=== PATIENT | male | born 1980 | race Native Hawaiian/Other Pacific Islander ===

== ENCOUNTER 2016-11-19 15:47 | Outpatient (CLI) | payer OTHER ==
[~2016-11-19 15:47] MED LIST: LOSA50TA PO; PROAIR HFA INH
== END 2016-11-19 19:10 | disposition home or self-care (01) ==
LOC: LAB 15:47
DX: R19.7 Diarrhea, unspecified (principal)
CPT/HCPCS: 87015; 87045; 87328; 87329; 87899

== ENCOUNTER 2017-02-25 12:50 | Outpatient (CLI) | payer OTHER | END 2017-02-25 19:10 | disposition home or self-care (01) | LOC: RAD 12:50 | DX: R05 Cough (principal) ==

== ENCOUNTER 2018-03-29 07:20 | Inpatient (IN) | payer BC ==
[2018-03-29] VITALS (11 sets, daily range): BP systolic 116–180; BP diastolic 79–112; TEMP 97.7–98.4; Ht 185.4 cm; Wt 124.3 kg
[~2018-03-29] VITALS: Ht 185.4 cm; Wt 124.3 kg
[2018-03-29 07:58] LABS: PLATELET COUNT 276 K/uL (142-355)
[2018-03-29 08:32] LABS: POTASSIUM 3.3 mmol/L (3.6-5.2)
[2018-03-29] MEDS ORDERED: METF100038 PO (16:01)
[2018-03-29] MEDS ORDERED: GLIP10TA55 PO (16:02)
[2018-03-29] MEDS ORDERED: CYCL10TA35 PO (16:06)
[2018-03-29 19:44] LABS: SODIUM 130.8 mmol/L (136-145)
[2018-03-30 04:00] VITALS: BP 117/63; TEMP 98.4
[2018-03-30 06:58] LABS: PLATELET COUNT 248 K/uL (142-355)
[2018-03-30 08:00] VITALS: BP 140/87; TEMP 98.1
[2018-03-30 09:19] LABS: POTASSIUM 4.2 mmol/L (3.6-5.2); SODIUM 134.4 mmol/L (136-145)
[2018-03-30 12:00] VITALS: BP 91/58; TEMP 98.6
[2018-03-30 16:19] VITALS: BP 129/81; TEMP 98.8
[2018-03-30 20:00] VITALS: BP 101/62; TEMP 98.7
[2018-03-31] VITALS: BP 95/62; TEMP 98.9
[2018-03-31 04:00] VITALS: BP 99/78; TEMP 98.4
[2018-03-31 06:47] LABS: PLATELET COUNT 187 K/uL (142-355)
[2018-03-31 08:03] VITALS: BP 144/83; TEMP 98.6
[2018-03-31 08:52] LABS: POTASSIUM 4.2 mmol/L (3.6-5.2); SODIUM 141.6 mmol/L (136-145)
[2018-03-31 12:05] VITALS: BP 111/68; TEMP 98.6
[2018-03-31 16:26] VITALS: BP 115/76; TEMP 99.1
[2018-03-31 20:09] VITALS: BP 140/79; TEMP 98.6
[2018-04-01] VITALS: BP 143/86; TEMP 98.5
[2018-04-01 04:00] VITALS: BP 142/98; TEMP 98.8
[2018-04-01 05:55] LABS: PLATELET COUNT 190 K/uL (142-355)
[2018-04-01 08:17] VITALS: BP 132/86; TEMP 97.9
[2018-04-01 10:51] LABS: SODIUM 159.6 mmol/L (136-145)
[2018-04-01 10:52] LABS: POTASSIUM 5.3 mmol/L (3.6-5.2)
[2018-04-01 12:03] VITALS: BP 133/50; TEMP 98.3
== END 2018-04-01 16:55 | disposition home or self-care (01) | DRG 439 ==
LOC: ED 07:20 → MED/SURG 13:41
PROVIDERS: Internal Medicine; ADMIT Family Medicine
DX: K85.80 Other acute pancreatitis without necrosis or infection (principal); K81.0 Acute cholecystitis; E87.1 Hypo-osmolality and hyponatremia; I10 Essential (primary) hypertension; E11.65 Type 2 diabetes mellitus with hyperglycemia; E78.1 Pure hyperglyceridemia; E66.8 Other obesity
CPT/HCPCS: 36415; 36600; 80048; 80053; 80061; 82150; 82550; 82553; 82805; 83605; 83690; 83735; 84100; 84484; 85027; 85379; 93005; 96374; 96375; 99284; J1650; J1815; J1885; J2175; J2270; J2405; J2543; J2550; Q9963

== ENCOUNTER 2018-04-03 09:17 | Observation (INO) | payer BC ==
[~2018-04-03] VITALS: Ht 185.4 cm; Wt 121.4 kg
[~2018-04-03 09:17] MED LIST changes: +CYCL10TA35 PO; +GLIP10TA55 PO; +METF100038 PO
[2018-04-03 10:28] LABS: PLATELET COUNT 232 K/uL (142-355)
[2018-04-03 10:43] VITALS: BP 12/84; TEMP 97.9; Ht 185.4 cm; Wt 121.4 kg
[2018-04-03 12:00] VITALS: BP 125/84; TEMP 97.9
[2018-04-03 12:20] LABS: POTASSIUM 4.4 mmol/L (3.6-5.2); SODIUM 130 mmol/L (136-145)
== END 2018-04-03 17:00 | disposition short-term general hospital (02) ==
LOC: MED/SURG 09:17
PROVIDERS: ADMIT Family Medicine
DX: R10.11 Right upper quadrant pain (principal); E86.0 Dehydration; I10 Essential (primary) hypertension; E11.9 Type 2 diabetes mellitus without complications
CPT/HCPCS: 80053; 82150; 82550; 83690; 84484; 85027; 93005; 99220; G0378; G0379; J2175; J2543; J2550

== ENCOUNTER 2018-04-03 17:17 | Outpatient (CLI) | payer BC | END 2018-04-03 18:32 | disposition short-term general hospital (02) | LOC: AMB 17:17 | DX: R10.11 Right upper quadrant pain (principal); E86.0 Dehydration; I10 Essential (primary) hypertension; E11.9 Type 2 diabetes mellitus without complications | CPT/HCPCS: A0425; A0429 ==

== ENCOUNTER 2018-09-15 12:20 | Outpatient (CLI) | payer BC ==
[~2018-09-15] VITALS: Ht 185.4 cm; Wt 132.0 kg
[2018-09-15 12:30] VITALS: BP 137/97; TEMP 98
== END 2018-09-15 22:41 | disposition home or self-care (01) ==
LOC: INF 12:20
DX: E86.0 Dehydration (principal)
CPT/HCPCS: 96360; 96361

== ENCOUNTER 2018-11-12 01:57 | Emergency (ER) | payer BC ==
[~2018-11-12] VITALS: Ht 185.4 cm; Wt 126.1 kg
[2018-11-12 02:46] LABS: PLATELET COUNT 274 K/uL (142-355)
[2018-11-12 04:33] LABS: POTASSIUM 5.1 mmol/L (3.6-5.2)
[2018-11-12 04:54] VITALS: BP 130/95; TEMP 97.9
== END 2018-11-12 04:56 | disposition home or self-care (01) ==
LOC: ED 01:57
PROVIDERS: Family Medicine
DX: E10.65 Type 1 diabetes mellitus with hyperglycemia (principal); Z79.4 Long term (current) use of insulin; I10 Essential (primary) hypertension; E78.49 Other hyperlipidemia; E66.9 Obesity, unspecified
CPT/HCPCS: 36415; 80053; 81000; 82962; 83036; 85027; 96360; 96361; 99284

== ENCOUNTER 2020-01-02 15:34 | Inpatient (IN) | payer BC, OTHER ==
[~2020-01-02] VITALS: Ht 185.4 cm; Wt 115.3 kg
[2020-01-02 21:34] VITALS: BP 139/76; TEMP 97.5
[2020-01-02 21:49] LABS: PLATELET COUNT 187 K/uL (142-355)
[2020-01-02 23:04] LABS: POTASSIUM 4.5 mmol/L (3.6-5.2)
[2020-01-03] VITALS (8 sets, daily range): BP systolic 122–149; BP diastolic 76–405; TEMP 97.5–98.4; Ht 185.4 cm; Wt 115.3 kg
[2020-01-03] MEDS ORDERED: ACET-689 PO (15:49)
[2020-01-03] MEDS ORDERED: PULMICORT180 MCG/AC PO (15:50)
[2020-01-03] MEDS ORDERED: FENOFIBRIC ACI135 MG PO (15:52)
[2020-01-03] MEDS ORDERED: METFORMIN ER1000 MG PO (15:52)
[2020-01-03] MEDS ORDERED: INSUINJP SC (15:54)
[2020-01-03] MEDS ORDERED: ROSUVASTATIN CA40 MG PO (15:54)
[2020-01-03] MEDS ORDERED: INSU100P SC (15:55)
[2020-01-03] MEDS ORDERED: VITAMIN C1 CH1 PO (15:56)
[2020-01-03] MEDS ORDERED: ASPIRIN325 M1 PO (15:56)
[2020-01-03] MEDS ORDERED: COZAAR100 MG PO (15:57)
[2020-01-03] MEDS ORDERED: PEPCID40 MG PO (15:57)
[2020-01-03] MEDS ORDERED: METO-837 PO (15:58)
[2020-01-03] MEDS ORDERED: OZEMPIC2 MG/1.5 M SC (15:59)
[2020-01-03] MEDS ORDERED: VITAMIN D5000 UNIT PO (16:00)
[2020-01-03] MEDS ORDERED: ZINC220 MG PO (16:01)
[2020-01-03 16:07] LABS: PLATELET COUNT 187 K/uL (142-355)
[2020-01-04 04:09] VITALS: BP 131/87; TEMP 98.3
[2020-01-04 05:43] LABS: PLATELET COUNT 175 K/uL (142-355)
[2020-01-04 05:56] LABS: POTASSIUM 3.3 mmol/L (3.6-5.2)
[2020-01-04 08:00] VITALS: BP 128/93; TEMP 98.4
[2020-01-04 12:00] VITALS: BP 139/92; TEMP 98.1
[2020-01-04 16:00] VITALS: BP 126/86; TEMP 98.3
[2020-01-04 20:09] VITALS: BP 126/81; TEMP 98.6
[2020-01-05 00:08] VITALS: BP 134/80; TEMP 98.7
[2020-01-05 04:01] VITALS: BP 126/95; TEMP 98.6
[2020-01-05 05:51] LABS: PLATELET COUNT 172 K/uL (142-355)
[2020-01-05 06:10] LABS: POTASSIUM 3.9 mmol/L (3.6-5.2)
[2020-01-05 08:00] VITALS: BP 125/85; TEMP 97.5
[2020-01-05 12:00] VITALS: BP 134/96; TEMP 97.7
[2020-01-05 16:00] VITALS: BP 131/85; TEMP 98
[2020-01-05 19:40] VITALS: BP 136/99; TEMP 98.4
[2020-01-06] VITALS (7 sets, daily range): BP systolic 118–140; BP diastolic 80–100; TEMP 97.5–98.5
[2020-01-06 05:49] LABS: POTASSIUM 3.8 mmol/L (3.6-5.2)
[2020-01-07 04:00] VITALS: BP 117/84; TEMP 98.3
[2020-01-07 06:06] LABS: PLATELET COUNT 202 K/uL (142-355)
[2020-01-07 07:22] LABS: POTASSIUM 4.1 mmol/L (3.6-5.2)
[2020-01-07 08:00] VITALS: BP 123/90; TEMP 97.9
[2020-01-07 12:00] VITALS: BP 121/88; TEMP 97.9
[2020-01-07 16:00] VITALS: BP 154/97; TEMP 97.9
[2020-01-07] MEDS ORDERED: PEPCID IV (18:00)
== END 2020-01-07 18:55 | disposition home or self-care (01) | DRG 177 ==
LOC: RAD 15:34 → MED/SURG 20:31 → RAD 20:37 → MED/SURG 01-04 16:00
PROVIDERS: ADMIT Family Medicine
DX: U07.1 COVID-19 (principal); J18.8 Other pneumonia, unspecified organism; E87.1 Hypo-osmolality and hyponatremia; E11.65 Type 2 diabetes mellitus with hyperglycemia; I10 Essential (primary) hypertension; E78.49 Other hyperlipidemia; E78.1 Pure hyperglyceridemia; G25.79 Other drug induced movement disorders; T42.6X5A Adverse effect of other antiepileptic and sedative-hypnotic drugs, initial encounter; Y92.89 Other specified places as the place of occurrence of the external cause; E87.8 Other disorders of electrolyte and fluid balance, not elsewhere classified; E66.8 Other obesity; R09.02 Hypoxemia
CPT/HCPCS: 36415; 80053; 80061; 82728; 83735; 84100; 85027; 85379; 86140; 87040; 94667; 94668; 94760; J0456; J1200; J1650; J1815; J1885; J2060; J2270

== ENCOUNTER 2020-03-13 08:51 | Outpatient (CLI) | payer BC, OTHER ==
[~2020-03-13 08:51] MED LIST changes: +ACET-689 PO; +ASPIRIN325 M1 PO; +COZAAR100 MG PO; +FENOFIBRIC ACI135 MG PO; +INSU100P SC; +INSUINJP SC; +METFORMIN ER1000 MG PO; +METO-837 PO; +OZEMPIC2 MG/1.5 M SC; +PEPCID IV; +PEPCID40 MG PO; +PULMICORT180 MCG/AC PO; +ROSUVASTATIN CA40 MG PO; +VITAMIN C1 CH1 PO; +VITAMIN D5000 UNIT PO; +ZINC220 MG PO
[2020-03-14] MEDS ORDERED: PEPCID40 MG PO (18:46)
[2020-03-14] MEDS ORDERED: HYDR5TAB9 PO (18:50)
[2020-03-14] MEDS ORDERED: METR250T19 PO (18:51)
[2020-03-14] MEDS ORDERED: CIPRO500 MG PO (18:51)
== END 2020-03-13 19:01 | disposition home or self-care (01) ==
LOC: US 08:51 → CT 08:51 → US 09:00
DX: R10.11 Right upper quadrant pain (principal)
CPT/HCPCS: 36415; 82565; 84520; Q9963

== ENCOUNTER 2020-03-14 17:00 | Inpatient (IN) | payer BC, OTHER ==
[~2020-03-14] VITALS: Ht 185.4 cm; Wt 113.5 kg
[2020-03-14 18:28] VITALS: BP 114/77; TEMP 100; Ht 185.4 cm; Wt 113.5 kg
[2020-03-14] MEDS ORDERED: PEPCID40 MG PO (18:46)
[2020-03-14] MEDS ORDERED: HYDR5TAB9 PO (18:50)
[2020-03-14] MEDS ORDERED: CIPRO500 MG PO (18:51)
[2020-03-14] MEDS ORDERED: METR250T19 PO (18:51)
[2020-03-14 20:00] VITALS: BP 130/73; TEMP 99.5
[2020-03-14 20:01] LABS: PLATELET COUNT 192 K/uL (142-355)
[2020-03-14 21:08] LABS: POTASSIUM 3.7 mmol/L (3.6-5.2)
[2020-03-14 23:44] VITALS: BP 134/86; TEMP 98.2
[2020-03-15 04:00] VITALS: BP 139/65; TEMP 98.2
[2020-03-15 08:00] VITALS: BP 147/102; TEMP 97.6
[2020-03-15 12:00] VITALS: BP 114/84; TEMP 97.7
[2020-03-15 12:51] LABS: PLATELET COUNT 103 K/uL (142-355)
[2020-03-15 13:41] LABS: POTASSIUM 3.7 mmol/L (3.6-5.2)
[2020-03-15 16:00] VITALS: BP 129/87; TEMP 97.8
[2020-03-15 19:24] LABS: POTASSIUM 4.2 mmol/L (3.6-5.2)
[2020-03-15 20:00] VITALS: BP 132/80; TEMP 98
[2020-03-16 00:30] VITALS: BP 110/67; TEMP 98.4
[2020-03-16 04:00] VITALS: BP 128/72; TEMP 98.1
[2020-03-16 06:03] LABS: PLATELET COUNT 168 K/uL (142-355)
[2020-03-16 06:19] LABS: POTASSIUM 4.3 mmol/L (3.6-5.2)
[2020-03-16 08:00] VITALS: BP 131/89; TEMP 98.6
[2020-03-16 12:00] VITALS: BP 119/79; TEMP 98.1
[2020-03-16 16:00] VITALS: BP 137/81; TEMP 98.4
[2020-03-16 20:05] VITALS: BP 151/93; TEMP 98
[2020-03-17] VITALS: BP 120/79; TEMP 97.7
[2020-03-17 04:00] VITALS: BP 129/91; TEMP 98.1
[2020-03-17 05:31] LABS: PLATELET COUNT 173 K/uL (142-355)
[2020-03-17 06:35] LABS: POTASSIUM 3.5 mmol/L (3.6-5.2)
[2020-03-17 08:00] VITALS: BP 122/84; TEMP 98.3
[2020-03-17 12:00] VITALS: BP 122/90; TEMP 98.3
[2020-03-17 16:00] VITALS: BP 110/72; TEMP 99
[2020-03-17 20:00] VITALS: BP 137/83; TEMP 98.4
[2020-03-18 00:02] VITALS: BP 133/95; TEMP 97.5
[2020-03-18 04:00] VITALS: BP 125/88; TEMP 98.2
[2020-03-18 05:23] LABS: PLATELET COUNT 178 K/uL (142-355)
[2020-03-18 05:41] LABS: POTASSIUM 3.6 mmol/L (3.6-5.2)
[2020-03-18 08:00] VITALS: BP 151/87; TEMP 98.1
[2020-03-18 12:00] VITALS: BP 129/89; TEMP 98.1
[2020-03-18 16:00] VITALS: BP 138/89; TEMP 97.9
[2020-03-18 20:00] VITALS: BP 139/89; TEMP 98.1
[2020-03-19] VITALS (14 sets, daily range): BP systolic 120–150; BP diastolic 61–99; TEMP 97.9–98.6
[2020-03-19 05:43] LABS: PLATELET COUNT 185 K/uL (142-355)
[2020-03-19 05:57] LABS: POTASSIUM 3.3 mmol/L (3.6-5.2)
[2020-03-20 04:00] VITALS: BP 137/94; TEMP 97.9
[2020-03-20 05:41] LABS: PLATELET COUNT 200 K/uL (142-355)
[2020-03-20 08:00] VITALS: BP 140/96; TEMP 98.1
[2020-03-20 12:00] VITALS: BP 131/91; TEMP 97.9
[2020-03-20 16:00] VITALS: BP 130/79; TEMP 98.3
== END 2020-03-20 19:18 | disposition home or self-care (01) | DRG 439 ==
LOC: MED/SURG 17:00
PROVIDERS: ADMIT Family Medicine
PROC: 0DB78ZX Excision of Stomach, Pylorus, Via Natural or Artificial Opening Endoscopic, Diagnostic (ICD-10-PCS; principal; 2020-03-19)
PROC: 0DB88ZX Excision of Small Intestine, Via Natural or Artificial Opening Endoscopic, Diagnostic (ICD-10-PCS; 2020-03-19)
DX: K85.90 Acute pancreatitis without necrosis or infection, unspecified (principal); E46 Unspecified protein-calorie malnutrition; E87.1 Hypo-osmolality and hyponatremia; K20.80 Other esophagitis without bleeding; K85.80 Other acute pancreatitis without necrosis or infection; K29.00 Acute gastritis without bleeding; K29.80 Duodenitis without bleeding; E11.65 Type 2 diabetes mellitus with hyperglycemia; I10 Essential (primary) hypertension; E78.49 Other hyperlipidemia; G47.39 Other sleep apnea; Z91.19 Patient's noncompliance with other medical treatment and regimen; E78.1 Pure hyperglyceridemia; E66.01 Morbid (severe) obesity due to excess calories
CPT/HCPCS: 36415; 80048; 80053; 80061; 81000; 82150; 83605; 83690; 83735; 84100; 85027; 85651; 87040; J0610; J0744; J1450; J1815; J2175; J2543; J2550; J2704; J3475; J3480; J3490

== ENCOUNTER 2020-06-25 16:52 | Inpatient (IN) | payer BC, OTHER ==
[~2020-06-25] VITALS: Ht 185.4 cm; Wt 109.0 kg
[~2020-06-25 16:52] MED LIST changes: +CIPRO500 MG PO; +HYDR5TAB9 PO; +METR250T19 PO
[2020-06-25 18:21] LABS: PLATELET COUNT 245 K/uL (142-355)
[2020-06-25 18:29] LABS: POTASSIUM 3.6 mmol/L (3.6-5.2)
[2020-06-25 20:00] VITALS: BP 150/79; TEMP 98.4
[2020-06-25 20:50] VITALS: BP 157/107; TEMP 97.7; Ht 185.4 cm; Wt 109.0 kg
[2020-06-26] VITALS: BP 173/96; TEMP 98
[2020-06-26 03:52] VITALS: BP 148/80; TEMP 98.8
[2020-06-26 05:55] LABS: PLATELET COUNT 204 K/uL (142-355)
[2020-06-26 06:31] LABS: POTASSIUM 3.5 mmol/L (3.6-5.2)
[2020-06-26 08:00] VITALS: BP 153/116; TEMP 98.8
[2020-06-26 12:00] VITALS: BP 146/86; TEMP 98
[2020-06-26 16:00] VITALS: BP 158/103; TEMP 98.8
[2020-06-26 20:00] VITALS: BP 127/79; TEMP 97.7
[2020-06-27 00:14] VITALS: BP 129/86; TEMP 97.9
[2020-06-27 04:28] VITALS: BP 125/72; TEMP 97.7
[2020-06-27 05:53] LABS: PLATELET COUNT 233 K/uL (142-355)
[2020-06-27 08:00] VITALS: BP 122/70; TEMP 98.6
[2020-06-27 08:20] LABS: POTASSIUM 4.2 mmol/L (3.6-5.2)
[2020-06-27 12:00] VITALS: BP 119/68; TEMP 98.3
[2020-06-27 16:00] VITALS: BP 110/68; TEMP 97.8
[2020-06-27 20:00] VITALS: BP 110/74; TEMP 97.7
[2020-06-28] VITALS: BP 143/87; TEMP 97.6
[2020-06-28 04:00] VITALS: BP 121/80; TEMP 98.1
[2020-06-28 05:52] LABS: PLATELET COUNT 205 K/uL (142-355)
[2020-06-28 06:11] LABS: POTASSIUM 4.4 mmol/L (3.6-5.2)
[2020-06-28 07:41] VITALS: BP 130/88; TEMP 98.1
[2020-06-28 11:32] VITALS: BP 148/70; TEMP 98.7
[2020-06-28 16:00] VITALS: BP 160/93; TEMP 99.3
[2020-06-28 20:00] VITALS: BP 149/78; TEMP 97.2
[2020-06-29] VITALS: BP 128/89; TEMP 98
[2020-06-29 04:00] VITALS: BP 139/86; TEMP 98.6
[2020-06-29 08:00] VITALS: BP 136/81; TEMP 98.8
[2020-06-29 11:50] LABS: PLATELET COUNT 193 K/uL (142-355)
[2020-06-29 12:00] VITALS: BP 116/72; TEMP 98.1
[2020-06-29 12:18] LABS: POTASSIUM 3.9 mmol/L (3.6-5.2)
[2020-06-29 16:00] VITALS: BP 123/74; TEMP 98.8
[2020-06-29 20:00] VITALS: BP 128/90; TEMP 98.1
[2020-06-30] VITALS (7 sets, daily range): BP systolic 106–155; BP diastolic 69–97; TEMP 97.2–100.5
[2020-06-30 05:12] LABS: PLATELET COUNT 192 K/uL (142-355)
[2020-06-30 05:41] LABS: POTASSIUM 3.4 mmol/L (3.6-5.2)
[2020-07-01 03:52] VITALS: BP 137/88; TEMP 98.7
[2020-07-01 05:27] LABS: PLATELET COUNT 168 K/uL (142-355)
[2020-07-01 06:24] LABS: POTASSIUM 3.1 mmol/L (3.6-5.2)
[2020-07-01 08:00] VITALS: BP 159/81; TEMP 98.4
[2020-07-01 12:00] VITALS: BP 140/72; TEMP 98.1
[2020-07-01 16:00] VITALS: BP 141/90; TEMP 97.9
[2020-07-01 20:00] VITALS: BP 132/84; TEMP 98.9
[2020-07-01 23:34] VITALS: BP 185/104; TEMP 98.1
[2020-07-02 03:40] VITALS: BP 145/97; TEMP 98.4
[2020-07-02 05:29] LABS: PLATELET COUNT 215 K/uL (142-355)
[2020-07-02 08:00] VITALS: BP 151/102; TEMP 98.8
[2020-07-02 12:00] VITALS: BP 163/93; TEMP 98.3
[2020-07-02 16:00] VITALS: BP 168/99; TEMP 97.9
== END 2020-07-02 18:43 | disposition home or self-care (01) | DRG 439 ==
LOC: MED/SURG 16:52
PROVIDERS: ADMIT Family Medicine; ATTEND Family Medicine
DX: K85.80 Other acute pancreatitis without necrosis or infection (principal); E87.1 Hypo-osmolality and hyponatremia; J44.1 Chronic obstructive pulmonary disease with (acute) exacerbation; E78.1 Pure hyperglyceridemia; I10 Essential (primary) hypertension; Z91.19 Patient's noncompliance with other medical treatment and regimen; K29.80 Duodenitis without bleeding; E87.8 Other disorders of electrolyte and fluid balance, not elsewhere classified; E78.2 Mixed hyperlipidemia; E66.01 Morbid (severe) obesity due to excess calories; G47.33 Obstructive sleep apnea (adult) (pediatric); E11.65 Type 2 diabetes mellitus with hyperglycemia; E88.09 Other disorders of plasma-protein metabolism, not elsewhere classified; Z68.34 Body mass index [BMI] 34.0-34.9, adult
CPT/HCPCS: 36415; 80053; 80061; 82150; 82550; 82948; 83605; 83690; 83735; 84100; 84443; 85007; 85027; 86140; 87635; 96365; 96366; 96367; 96375; J1170; J1450; J1815; J2175; J2405; J2543; J2550; J3480; J3490; Q9963; U0003

== ENCOUNTER 2020-07-23 07:56 | Outpatient (CLI) | payer BC, OTHER | END 2020-07-23 21:03 | disposition home or self-care (01) | LOC: NM 07:56 | PROVIDERS: ATTEND Internal Medicine Gastroenterology | DX: R10.11 Right upper quadrant pain (principal) | CPT/HCPCS: A9537 ==

== ENCOUNTER 2020-11-11 09:41 | Emergency (ER) | payer OTHER ==
[2020-11-23 07:53] LABS: PLATELET COUNT 224 K/uL (142-355)
[2020-11-23 07:55] LABS: POTASSIUM 4.7 mmol/L (3.6-5.2); SODIUM 130 mmol/L (136-145)
== END 2020-11-11 13:14 | disposition home or self-care (01) ==
LOC: ED 09:41
PROVIDERS: Family Medicine
DX: S20.214A Contusion of middle front wall of thorax, initial encounter (principal); V43.52XA Car driver injured in collision with other type car in traffic accident, initial encounter; Y93.89 Activity, other specified; Y92.488 Other paved roadways as the place of occurrence of the external cause; S16.1XXA Strain of muscle, fascia and tendon at neck level, initial encounter
CPT/HCPCS: 80053; 82550; 82553; 84484; 85027; 93005; 96374; 96375; 99284; Q9963

== ENCOUNTER 2021-01-14 13:10 | Inpatient (IN) | payer OTHER ==
[~2021-01-14] VITALS: Ht 185.4 cm; Wt 114.4 kg
[2021-01-14 13:10] VITALS: BP 157/112; TEMP 97.3
[2021-01-14 14:23] LABS: PLATELET COUNT 218 K/uL (142-355)
[2021-01-14 14:39] LABS: POTASSIUM 3.5 mmol/L (3.6-5.2)
[2021-01-14 15:30] VITALS: BP 159/112
[2021-01-14 23:11] VITALS: BP 173/111; TEMP 98.1
[2021-01-15] VITALS (8 sets, daily range): BP systolic 104–165; BP diastolic 50–98; TEMP 97.7–98.8; Ht 185.4 cm; Wt 114.4 kg
[2021-01-15 06:18] LABS: POTASSIUM 5.2 mmol/L (3.6-5.2)
[2021-01-15 07:02] LABS: PLATELET COUNT 228 K/uL (142-355)
[2021-01-16] VITALS: BP 105/68; TEMP 97.7
[2021-01-16 04:00] VITALS: BP 100/62; TEMP 97.8
[2021-01-16 08:00] VITALS: BP 124/70; TEMP 99.2
[2021-01-16 12:00] VITALS: BP 119/75; TEMP 97.7
[2021-01-16 16:00] VITALS: BP 140/93
--- NOTE | 2021-01-16 19:58 | NUR ---
01/16/211899 CALLED TO NURSING STATION [facility]TH[facility] TO GET UPDATE ON HIM.TOLD HIM THAT HIS BROOTHER HAS BEEN COMFORTABLE TODAY,ALSO VITAL SIGNS STABLE.BROTHER STATED FOR AMAN TO CALL HIS MOM WHEN HE WAKES UP,TAILOR HELPER NURSE ROBIN NOTIFIED.CC
[2021-01-16 20:00] VITALS: BP 131/88; TEMP 101.4
[2021-01-17] VITALS: BP 128/86; TEMP 98.1
[2021-01-17 04:00] VITALS: BP 130/76; TEMP 97.5
[2021-01-17 08:00] VITALS: BP 155/92; TEMP 97.6
[2021-01-17 12:00] VITALS: BP 129/85; TEMP 98
[2021-01-17 14:23] LABS: PLATELET COUNT 145 K/uL (142-355)
[2021-01-17 16:00] VITALS: BP 145/89; TEMP 97.7
[2021-01-17 16:08] LABS: PLATELET COUNT 219 K/uL (142-355)
[2021-01-17 20:00] VITALS: BP 139/92; TEMP 97.6
--- NOTE | 2021-01-17 20:17 | NUR ---
01/17/21 1630 LABS WILL BE SENT OUT TOMORROW AND REPORTED ON TUESDAY PER LAB.CC
[2021-01-18] VITALS: BP 108/54; TEMP 99
[2021-01-18 04:00] VITALS: BP 139/91; TEMP 98.2
[2021-01-18 08:00] VITALS: BP 152/89; TEMP 98.4
[2021-01-18 12:00] VITALS: BP 160/93; TEMP 97.9
[2021-01-18 13:17] LABS: PLATELET COUNT 155 K/uL (142-355)
[2021-01-18 13:39] LABS: POTASSIUM 3.1 mmol/L (3.6-5.2)
[2021-01-18 16:00] VITALS: BP 160/93; TEMP 97.9
--- NOTE | 2021-01-18 18:48 | NUR ---
Pt was discharged home at 1655 with his belongings and his home meds along with 2 hand written precscriptions by . Pt wheeled to front door and pt was able to stand and enter vehicle on his on with his driving. Left with no s/s of distress.
[2021-01-19 14:18] LABS: POTASSIUM 4.2 mmol/L (3.6-5.2)
== END 2021-01-18 16:17 | disposition home or self-care (01) | DRG 440 ==
LOC: ED 13:14 → MED/SURG 01-15 15:12
PROVIDERS: Emergency Medicine Emergency Medical Services; ADMIT Family Medicine; ATTEND Family Medicine
DX: K85.90 Acute pancreatitis without necrosis or infection, unspecified (principal); E78.49 Other hyperlipidemia; K21.9 Gastro-esophageal reflux disease without esophagitis; E11.610 Type 2 diabetes mellitus with diabetic neuropathic arthropathy; I10 Essential (primary) hypertension; R11.2 Nausea with vomiting, unspecified; R50.9 Fever, unspecified; R10.9 Unspecified abdominal pain; E66.8 Other obesity; Z68.32 Body mass index [BMI] 32.0-32.9, adult
CPT/HCPCS: 80053; 80061; 82150; 83605; 83690; 83735; 84100; 84484; 85007; 85027; 87040; 93005; 96360; 96375; 96376; 99284; J1170; J1815; J1885; J1956; J2175; J2405; J2543; J2550; J2765

== ENCOUNTER 2021-06-15 14:01 | Outpatient (CLI) | payer BC, OTHER ==
[~2021-06-15] VITALS: Ht 185.4 cm; Wt 120.2 kg
== END 2021-06-15 22:11 | disposition home or self-care (01) ==
LOC: INF 14:01
PROVIDERS: ATTEND Family Medicine
DX: U07.1 COVID-19 (principal); Z23 Encounter for immunization
CPT/HCPCS: 96365; M0244

== ENCOUNTER 2021-08-10 00:01 | Inpatient (IN) | payer BC, OTHER ==
[~2021-08-10] VITALS: Ht 185.4 cm; Wt 109.0 kg
[2021-08-10] VITALS (14 sets, daily range): BP systolic 129–197; BP diastolic 84–113; TEMP 97.7–100; Ht 185.4 cm; Wt 109.0 kg
[2021-08-10 02:06] LABS: POTASSIUM 3.8 mmol/L (3.6-5.2)
[2021-08-10 02:38] LABS: PLATELET COUNT 459 K/uL (142-355)
[2021-08-10 08:25] LABS: PLATELET COUNT 211 K/uL (142-355)
[2021-08-10 08:49] LABS: POTASSIUM 4.2 mmol/L (3.6-5.2); SODIUM 128 mmol/L (136-145)
[2021-08-10] MEDS ORDERED: ASPIRIN81 M2 PO (12:01)
[2021-08-10] MEDS ORDERED: METFORMIN HYD1000 MG PO (12:04)
[2021-08-10] MEDS ORDERED: ROSUVASTATIN CA40 MG PO (12:07)
[2021-08-10] MEDS ORDERED: TRICOR145 M1 PO (12:09)
[2021-08-10] MEDS ORDERED: METOCLOPRAM10 MG PO (12:10)
[2021-08-10] MEDS ORDERED: PANTOPRAZOLE 40MG TA PO (12:11)
[2021-08-10] MEDS ORDERED: [UNRECOGNIZED DRUG - CODE] PO (12:12)
[2021-08-10] MEDS ORDERED: LANTUS100 UNIT/M SC (13:24)
[2021-08-10] MEDS ORDERED: NOVOLOG100 UNIT/M SC (13:26)
[2021-08-10] MEDS ORDERED: ACTOS15 MG PO (13:27)
[2021-08-10] MEDS ORDERED: NOVOLIN N100 UNIT/2 SC (13:36)
[2021-08-11] VITALS (7 sets, daily range): BP systolic 128–145; BP diastolic 82–90; TEMP 97.8–98.8
[2021-08-11 05:43] LABS: PLATELET COUNT 190 K/uL (142-355)
[2021-08-11 06:04] LABS: POTASSIUM 4.3 mmol/L (3.6-5.2); SODIUM 130 mmol/L (136-145)
[2021-08-12 04:06] VITALS: BP 133/87; TEMP 98.5
[2021-08-12 06:05] LABS: POTASSIUM 4.4 mmol/L (3.6-5.2); SODIUM 134 mmol/L (136-145)
[2021-08-12 06:24] LABS: PLATELET COUNT 179 K/uL (142-355)
[2021-08-12 12:00] VITALS: BP 138/95; TEMP 97.9
== END 2021-08-12 15:12 | disposition home or self-care (01) | DRG 440 ==
LOC: ED 00:01 → MED/SURG 03:45
PROVIDERS: Hospitalist; ADMIT Family Medicine; ATTEND Family Medicine
DX: K85.80 Other acute pancreatitis without necrosis or infection (principal); E11.65 Type 2 diabetes mellitus with hyperglycemia; I10 Essential (primary) hypertension; K21.9 Gastro-esophageal reflux disease without esophagitis; E66.8 Other obesity; Z68.32 Body mass index [BMI] 32.0-32.9, adult; E78.49 Other hyperlipidemia; J44.9 Chronic obstructive pulmonary disease, unspecified
CPT/HCPCS: 36415; 36600; 80053; 80061; 80320; 81000; 81002; 82150; 82805; 83690; 83735; 84100; 84478; 84484; 85027; 87635; 93005; 94640; 94664; 94760; 96361; 96365; 96375; 96376; 99284; J0610; J1170; J1200; J1650; J1815; J2405; J2543; J3475; J3490; U0003

== ENCOUNTER 2021-11-29 06:53 | Emergency (ER) | payer BC, OTHER ==
[~2021-11-29] VITALS: Ht 185.4 cm; Wt 113.4 kg
[~2021-11-29 06:53] MED LIST changes: +ACTOS15 MG PO; +ASPIRIN81 M2 PO; +LANTUS100 UNIT/M SC; +METFORMIN HYD1000 MG PO; +METOCLOPRAM10 MG PO; +NOVOLIN N100 UNIT/2 SC; +NOVOLOG100 UNIT/M SC; +PANTOPRAZOLE 40MG TA PO; +TRICOR145 M1 PO; +[UNRECOGNIZED DRUG - CODE] PO
[2021-11-29 07:47] LABS: POTASSIUM 3.5 mmol/L (3.6-5.2); SODIUM 122 mmol/L (136-145)
[2021-11-29 08:05] LABS: PLATELET COUNT 226 K/uL (142-355)
[2021-11-29 10:32] VITALS: BP 112/85; TEMP 98.3
== END 2021-11-29 10:35 | disposition still patient (30) ==
LOC: ED 06:53
PROVIDERS: Emergency Medicine
DX: K85.80 Other acute pancreatitis without necrosis or infection (principal); R94.31 Abnormal electrocardiogram [ECG] [EKG]; E11.65 Type 2 diabetes mellitus with hyperglycemia; Z79.4 Long term (current) use of insulin
CPT/HCPCS: 36415; 80053; 80320; 82150; 83690; 84484; 85027; 87635; 93005; 96360; 96361; 96365; 96375; 96376; 99284; J1170; J1644; J1815; J2270; J2405; Q9963; U0003